=== PATIENT | male | born 1980 | race Caucasian/White ===

== ENCOUNTER 2017-02-16 20:29 | Emergency (ER) | payer OTHER ==
[2017-02-16 21:42] LABS: BASOPHIL 0.2 % (0-2); EOSINOPHIL 7.3 % (0-5); HGB 14.8 g/dl (13.2-18.0); LYMPHOCYTE 48.2 % (15-48); MCH 29.4 pg (25.0-31.0); MCHC 35.2 g/dL (32.0-36.0); MCV 83.5 fL (78.0-100.0); MONOCYTE 6.7 % (0-12); MPV 9.7 fL (6.0-9.5); NEUTROPHIL 37.6 % (41-80); PLT 270 K/uL (150-400); RBC 5.03 M/uL (4.70-6.00); RDW 12.6 % (11.5-14.0); WBC 6.1 K/uL (4.0-10.5)
[2017-02-16 21:52] LABS: ALBUMIN 4.2 g/dL (3.5-5.0); BILIRUBIN - TOTAL 0.3 mg/dL (0.1-1.0); CREATININE 1.2 mg/dL (0.7-1.2); GLOBULIN (CALCULATION) 2.9 g/dL (2.2-4.2); POTASSIUM 4.7 mmol/L (3.5-5.1); TOTAL PROTEIN 7.1 g/dL (6.4-8.3)
[2017-02-16 22:04] LABS: BILIRUBIN NEGATIVE (NEGATIVE); BLOOD NEGATIVE Ery/uL (NEGATIVE); CLARITY CLEAR (CLEAR); COLOR YELLOW (YELLOW); GLUCOSE (U) NORMAL (NORMAL); KETONE (U) TRACE mg/dL (NEGATIVE); LEUKOCYTES NEGATIVE Leu/uL (NEGATIVE); NITRITE NEGATIVE (NEGATIVE); PROTEIN NEGATIVE (NEGATIVE)
== END 2017-02-16 22:51 | disposition home or self-care (01) ==
LOC: FER 20:29
PROVIDERS: Nurse Practitioner Family
DX: E86.0 Dehydration (principal); I10 Essential (primary) hypertension; E03.9 Hypothyroidism, unspecified; F17.210 Nicotine dependence, cigarettes, uncomplicated; Z88.0 Allergy status to penicillin; Z79.899 Other long term (current) drug therapy
CPT/HCPCS: 36415; 80053; 81003; 82150; 83036; 83690; 85025